=== PATIENT | female | born 1990 | race Caucasian/White ===

== ENCOUNTER 2023-01-24 08:40 | Inpatient (IN) | payer MEDICAID, OTHER ==
[~2023-01-24] VITALS: Ht 152.4 cm; Wt 49.4 kg
[2023-01-24] VITALS (9 sets, daily range): BP systolic 105–123; BP diastolic 58–78; TEMP 98.3; O2SAT 98–100
[~2023-01-24 08:40] MED LIST: ETOMIDATE 20 MG/10 ML VIAL ONE; ROCURONIUM BROMIDE 50 MG/5 ML VIAL ONE
--- NOTE | 2023-01-24 09:02 | NUR ---
Pt seen by MD for bedside eval. Safety measures in place. Will continue to monitor.
[2023-01-24] MEDS ORDERED: IV NORMAL SALINE 1000 ML BAG IV ONE ×3 (09:15→17:00)
[2023-01-24 10:00] LABS: ABG BASE EXCESS -15.2 mmol/L; ABG HCO3 8.8 mmol/L; ABG PCO2 18.4 mmHg (35.0-45.0); ABG PH 7.296 (7.350-7.450); ABG PO2 59.4 mmHg (75.0-100.0); ABG SITE LEFT RADIAL; ABG TOTAL HEMOGLOBIN 14.3 G/dL (12.0-16.0); COHb 1.8 % (0.5-1.5); MetHb 0.2 % (0.0-1.5); O2Hb 87.4 % (94.0-97.0); VENT MODE RA
[2023-01-24 10:03] LABS: HEMATOCRIT 44.2 % (31.2-41.9); MEAN CORPUSCULAR HEMOGLOBIN 29.3 uug (24.7-32.8); MEAN CORPUSCULAR VOLUME 96.1 fL (75.5-95.3); PLATELET COUNT (AUTO) 648 K/uL (179-408)
--- NOTE | 2023-01-24 10:09 | NUR ---
Administered 2L O2 via NC on Pt as Pt's SpO2 is 92%. SpO2 is now 99%. Safety measures in place. Will continue to monitor.
[2023-01-24 10:16] LABS: ALANINE AMINOTRANSFERASE 15 U/L (14-59); ALKALINE PHOSPHATASE 201 U/L (50-136); ASPARTATE AMINOTRANSFERASE 8 U/L (15-37); BILIRUBIN,DIRECT 0.1 mg/dL (0.0-0.2); BILIRUBIN,TOTAL 0.6 mg/dL (0.2-1.0); TOTAL PROTEIN, SERUM 7.9 g/dL (6.4-8.2)
[2023-01-24 10:17] LABS: ACETAMINOPHEN < 2.0 ug/mL (10-30)
[2023-01-24] MEDS ORDERED: AZITHROMYCIN IV 500 MG in IV DEXTROSE 5% 250 ML IV ONE (10:30)
[2023-01-24] MEDS ORDERED: CEFTRIAXONE 1 G in IV DEXTROSE 5% 50 ML IV ONE (10:30)
[2023-01-24 10:32] LABS: *AMPHETAMINE, URINE NEGATIVE (NEGATIVE); *CANNABINOID, URINE NEGATIVE (NEGATIVE); *COCCAINE, URINE NEGATIVE (NEGATIVE); *PHENCYCLIDINE SCREEN,URINE NEGATIVE (NEGATIVE)
[2023-01-24] MEDS ORDERED: AZITHROMYCIN 500MG/ D5W 250ML IVPB **ER PYXIS ONLY IV ONE (10:37)
[2023-01-24] MEDS ORDERED: CEFTRIAXONE /D5W 50ML IVPB **ER PYXIS IV ONE (10:37)
[2023-01-24 10:39] LABS: *URINE HCG, QUAL NEGATIVE (NEGATIVE)
[2023-01-24 10:44] LABS: *CLARITY,URINE CLEAR (CLEAR); *COLOR,URINE YELLOW (YELLOW); *KETONES,URINE 4+ (NEGATIVE); *UROBILINOGEN,URINE 0.2 E.U./dl (NORMAL); LEUKOCYTE ESTERASE ,URINE NEGATIVE (NEGATIVE); NITRITE, URINE NEGATIVE (NEGATIVE)
[2023-01-24 10:48] LABS: *BLOOD, URINE TRACE (NEGATIVE); UGLUCOSE 3+ (NEGATIVE)
[2023-01-24 10:49] LABS: *BILIRUBIN,URIN 1+ (NEGATIVE)
[2023-01-24 11:01] LABS: BACTERIA,URINE FEW /HPF (NONE SEEN); RBC,URINE 0-3 /HPF (0-3); SQUAMOUS EPITHELIAL CELL,UR FEW /HPF (NONE SEEN); WBC,URINE NONE SEEN /HPF (0-3)
--- NOTE | 2023-01-24 11:55 | NUR ---
Assisted Dr. Waddell with intubation. 7.5ETT @ approx 23cm @ at the lip. With the given settings AC, RR 20 , 400, +0 PEEP, 100% ABG to be done in an hour, sputum sampled obtained
--- NOTE | 2023-01-24 11:55 | NUR ---
Pt intubated by with nursing staff and WOOD TURNING LATHE OPERATOR at bedside.
[2023-01-24 12:00] LABS: CREATININE 2.2 mg/dL (0.6-1.3); MAGNESIUM 2.2 mg/dL (1.8-2.4); PHOSPHOROUS 6.5 mg/dL (2.5-4.9); POTASSIUM 3.4 mmol/L (3.5-5.1)
[2023-01-24 12:01] LABS: CREATININE 2.3 mg/dL (0.6-1.3); MAGNESIUM 2.4 mg/dL (1.8-2.4); PHOSPHOROUS 6.8 mg/dL (2.5-4.9); POTASSIUM 3.6 mmol/L (3.5-5.1)
[2023-01-24] MEDS ORDERED: PROPOFOL 0 ML ONE (12:06)
--- NOTE | 2023-01-24 12:43 | NUR ---
Dr. Waddell successfully performed central line. Successfully retrieved guide wire and properly discarded it. Safety measures in place. Will continue to monitor.
[2023-01-24 13:05] LABS: ABG BASE EXCESS -23.4 mmol/L; ABG HCO3 6.7 mmol/L; ABG PCO2 28.1 mmHg (35.0-45.0); ABG PH 6.995 (7.350-7.450); ABG PO2 447.4 mmHg (75.0-100.0); ABG SITE RIGHT BRACHIAL; ABG TOTAL HEMOGLOBIN 11.5 G/dL (12.0-16.0); COHb 0.2 % (0.5-1.5); MetHb 0.4 % (0.0-1.5); O2Hb 99.2 % (94.0-97.0); VENT MODE VENT - A/C; VT, ABG 400 mL
[2023-01-24 13:07] LABS: HEMATOCRIT 34.5 % (31.2-41.9)
[2023-01-24 13:38] LABS: CREATININE 2.1 mg/dL (0.6-1.3); MAGNESIUM 1.9 mg/dL (1.8-2.4); POTASSIUM 3.2 mmol/L (3.5-5.1)
[2023-01-24] MEDS ORDERED: IV 0.9% SODIUM CHLORID+ 20 KCL 1,000 ML IV PRN (13:45)
[2023-01-24] MEDS ORDERED: INSULIN REGULAR, HUMAN 100 UNIT in IV NORMAL SALINE 100 ML IV PRN ×2 (13:45)
[2023-01-24] MEDS ORDERED: INSULIN REGULAR, HUMAN 300 UNIT/3 ML VIAL IV ONE (13:45)
[2023-01-24] MEDS ORDERED: INSULIN REGULAR, HUMAN 300 UNIT/3 ML VIAL ONE (13:52)
[2023-01-24] MEDS ORDERED: IV 0.9% SODIUM CHLORID+ 20 KCL 1,000 ML ONE (14:02)
[2023-01-24] MEDS ORDERED: REMEDY ESSENTIAL ZINC PASTE 113 GM TP PRN (14:15)
[2023-01-24] MEDS ORDERED: ONDANSETRON 4 MG/2 ML VIAL IV PRN (14:15)
[2023-01-24] MEDS ORDERED: ACETAMINOPHEN 650 MG SUPP.RECT RC PRN (14:15)
[2023-01-24] MEDS: POTASSIUM CHLORIDE 50 ML IV SCH ×3 (14:29→23:00)
[2023-01-24] MEDS ORDERED: SODIUM BICARBONATE 8.4% 50 MEQ/50 ML VIAL IV ONE (14:45)
[2023-01-24] MEDS ORDERED: SODIUM BICARBONATE 8.4% 50 MEQ/50 ML DISP.SYRIN IV ONE (14:51)
[2023-01-24] MEDS ORDERED: BLOOD SUGAR DIAGNOSTIC 1 EACH STRIP VI SCH (15:00)
--- NOTE | 2023-01-24 15:00 | NUR ---
Pt's 1500 Blood Glucose is shown as "HI" as indicated by glucometer. Safety measures in place. Will continue to monitor.
[2023-01-24] MEDS: BLOOD SUGAR DIAGNOSTIC 1 EACH STRIP VI SCH ×9 (15:13→23:07)
[2023-01-24 16:00] LABS: ABG BASE EXCESS -18.3 mmol/L; ABG HCO3 9.1 mmol/L; ABG PCO2 26.8 mmHg (35.0-45.0); ABG PH 7.149 (7.350-7.450); ABG PO2 87.2 mmHg (75.0-100.0); ABG SITE LEFT RADIAL; ABG TOTAL HEMOGLOBIN 11.9 G/dL (12.0-16.0); COHb 0.6 % (0.5-1.5); MetHb 0.2 % (0.0-1.5); O2Hb 94.5 % (94.0-97.0); VENT MODE VENT - A/C; VT, ABG 400 mL
[2023-01-24] MEDS ORDERED: PROPOFOL 100 ML ONE (16:20)
--- NOTE | 2023-01-24 16:51 | NUR ---
Pt's 1600 Blood Glucose is shown as "HI" as indicated by glucometer. Safety measures in place. Will continue to monitor.
--- NOTE | 2023-01-24 17:14 | NUR ---
Pt's 1700 Blood Glucose is shown as "HI" as indicated by glucometer. Safety measures in place. Will continue to monitor.
--- NOTE | 2023-01-24 17:27 | NUR ---
Increased propofol every 10 min. Propofol is now at 40mcg. Safety measures in place. Will continue to monitor.
[2023-01-24] MEDS ORDERED: MISCELLANEOUS MED XX ONE (18:00)
[2023-01-24] MEDS: IV NS 1000 ML 1,000 ML IV PRN ×2 (18:28→20:57)
[2023-01-24] MEDS ORDERED: POTASSIUM CHLORIDE 50 ML IV SCH (18:45)
[2023-01-24] MEDS ORDERED: POTASSIUM CHLORIDE 100 ML ONE (18:46)
[2023-01-24] MEDS: INSULIN REGULAR, HUMAN 100 UNITS in IV NORMAL SALINE 100 ML IV SCH ×4 (18:50→23:01)
--- NOTE | 2023-01-24 18:54 | NUR ---
Insulin drip initiated at approximately 1500: 10 U/hr. Safety measures in place. Will continue to monitor.
--- NOTE | 2023-01-24 19:00 | NUR ---
Gave report to Chelsea GEE).
--- NOTE | 2023-01-24 19:08 | NUR ---
Pt's 1900 Blood Glucose is shown as "HI" as indicated by glucometer. Safety measures in place. Will continue to monitor.
--- NOTE | 2023-01-24 19:45 | NUR ---
Pt transferred to 21-1 safely and in stable condition. All belongings are with pt. All documentation is with ICU.
--- NOTE | 2023-01-24 19:50 | NUR ---
Pt is noted sedated with ETT to Vent therapy in place as report is received from the day shift RN as pt is a new admit from ER and transferred from ER Bed-1B. Pt is Sinus Rhythm on the Tele monitor, Diminished Lungs sound with ETT 7.5/22CM to Vent therapy in progress with setting off AC 20, 400 AND 40%, skin dry, warm and intact. Pt is noted with Boyer and Right Femoral [id number] with Insulin Gtt at 20ML/HR, Propofol at 50mcq and IVF 0.9NS AT 200ml/hr. Pt care continue as she will be monitor closely with Blood Glucose check Q1HR per DKA Protocol and Labs done as well.
[2023-01-24 22:34] LABS: CREATININE 1.8 mg/dL (0.6-1.3); POTASSIUM 3.1 mmol/L (3.5-5.1)
--- NOTE | 2023-01-24 22:49 | NUR ---
Pt care continue as Potassium 30Meq IVPB ordered per Protocol due to K+ Level off 3.1 and also Pt remain on Insulin gtt with LAB calling new results off 550.
[2023-01-24] MEDS: PROPOFOL 100 ML IV PRN (23:11)
[2023-01-25] VITALS (47 sets, daily range): BP systolic 106–163; BP diastolic 29–104; TEMP 98.9–99.9; O2SAT 97–100
[2023-01-25] MEDS: POTASSIUM CHLORIDE 50 ML IV SCH ×2 (00:06→01:02)
[2023-01-25] MEDS: BLOOD SUGAR DIAGNOSTIC 1 EACH STRIP VI SCH ×11 (00:15→18:46)
--- NOTE | 2023-01-25 01:20 | NUR ---
Pt remain full code as Blood Gulose is been monitor 1hr with Insulin gtt therapy in progress and IVF 0.9NS AT 200ml/hr with sedations Propofol at 50mcg/hr. Pt care continue with ETT to Vent therapy and suctions as needed.
--- NOTE | 2023-01-25 04:35 | NUR ---
Pt care continue as she remain NPO with ETT to Vent therapy and still on Insulin gtt at 2units/hr as awaits next LAB Drawn and Propofol at 50Mcg with IVF 9.0NS at 200ml/hr as AM care done.
[2023-01-25 04:57] LABS: HEMATOCRIT 34.2 % (31.2-41.9); MEAN CORPUSCULAR HEMOGLOBIN 29.1 uug (24.7-32.8); PLATELET COUNT (AUTO) 448 K/uL (179-408)
[2023-01-25] MEDS: PROPOFOL 100 ML IV PRN ×4 (05:01→17:55)
[2023-01-25 05:54] LABS: CREATININE 1.7 mg/dL (0.6-1.3); MAGNESIUM 1.3 mg/dL (1.8-2.4); POTASSIUM 3.7 mmol/L (3.5-5.1)
[2023-01-25 06:26] LABS: ABG BASE EXCESS 1.3 mmol/L; ABG HCO3 24.2 mmol/L; ABG PCO2 32.7 mmHg (35.0-45.0); ABG PH 7.487 (7.350-7.450); ABG PO2 115.6 mmHg (75.0-100.0); ABG SITE RIGHT RADIAL; ABG TOTAL HEMOGLOBIN 11.8 G/dL (12.0-16.0); COHb 0.1 % (0.5-1.5); MetHb 0.2 % (0.0-1.5); O2Hb 98.2 % (94.0-97.0); VENT MODE VENT - A/C; VT, ABG 400 mL
[2023-01-25] MEDS ORDERED: POTASSIUM CHLORIDE 50 ML IV SCH (06:30)
--- NOTE | 2023-01-25 07:33 | NUR ---
Pt care continue as report is given to the AM receiving nurse.
[2023-01-25] MEDS ORDERED: PIPERACILLIN SODIUM/TAZOBACTAM 3.375 G in IV DEXTROSE 5% 50 ML IV SCH (08:00)
[2023-01-25] MEDS ORDERED: POTASSIUM PHOSPHATE MM 15 MMOL in IV NORMAL SALINE 250 ML IV ONE (08:00)
[2023-01-25] MEDS: IV NS 1000 ML 1,000 ML IV PRN (08:39)
[2023-01-25] MEDS: PIPERACILLIN SODIUM/TAZOBACTAM 3.375 G in IV DEXTROSE 5% 100 ML IV SCH ×3 (09:30→21:18)
[2023-01-25] MEDS: INSULIN REGULAR, HUMAN 100 UNITS in IV NORMAL SALINE 100 ML IV SCH ×2 (09:37)
[2023-01-25] MEDS ORDERED: IV D5/ 0.9% NACL 1,000 ML IV PRN (10:30)
[2023-01-25] MEDS: MAGNESIUM SULFATE/D5W 100 ML IV SCH ×2 (10:46→10:49)
[2023-01-25] MEDS: PANTOPRAZOLE SODIUM 40 MG VIAL IV SCH (10:47)
[2023-01-25] MEDS: HEPARIN SODIUM,PORCINE 5,000 UNITS/ML VIAL SQ SCH ×2 (10:48→21:17)
[2023-01-25] MEDS ORDERED: BLOOD SUGAR DIAGNOSTIC 1 EACH STRIP VI SCH (12:00)
[2023-01-25] MEDS ORDERED: DEXTROSE 50% 50 ML DISP.SYRIN IV PRN ×2 (12:30→20:15)
[2023-01-25] MEDS: IPRATROPIUM BROMIDE 0.5 MG/2.5 ML NEBU NEB SCH ×2 (12:57→20:53)
[2023-01-25] MEDS: ALBUTEROL SULFATE 2.5 MG/3 ML NEBU NEB SCH ×2 (12:57→20:53)
[2023-01-25] MEDS: INSULIN REGULAR, HUMAN 300 UNIT/3 ML VIAL SQ PRN ×2 (12:58→18:55)
[2023-01-25] MEDS: IV D5 1/2 NS 1000 ML 1,000 ML IV PRN (15:46)
--- NOTE | 2023-01-25 17:30 | NUR ---
PT REMAINS INTUBATED, SPO2 AND RESPIRATIONS WNL THROUGHOUT SHIFT. SIZE 7.5 ETT FOUND @ 22 CM LIP LINE. ETT REPOSITIONED Q2, ETT/ORAL SXN PROVIDED PRN. IN-LINE TX TOLERATED WELL WITHOUT ADVERSE REACTION. WILL CONTINUE TO MONITOR PT AND FOLLOW CURRENT RESPIRATORY ORDERS.
[2023-01-25 22:44] LABS: *BILIRUBIN,URIN 1+ (NEGATIVE); *CLARITY,URINE CLEAR (CLEAR); *COLOR,URINE YELLOW (YELLOW); *KETONES,URINE 2+ (NEGATIVE); *UROBILINOGEN,URINE 0.2 E.U./dl (NORMAL); LEUKOCYTE ESTERASE ,URINE NEGATIVE (NEGATIVE); NITRITE, URINE NEGATIVE (NEGATIVE); UGLUCOSE 2+ (NEGATIVE)
[2023-01-25 22:47] LABS: *BLOOD, URINE TRACE (NEGATIVE)
[2023-01-25 22:56] LABS: *URINE TOTAL PROTEIN RANDOM 134.1 mg/dL (<150/24HR)
[2023-01-26] VITALS (30 sets, daily range): BP systolic 121–166; BP diastolic 61–105; TEMP 98.1–99.3; O2SAT 95–100
[2023-01-26] MEDS: PROPOFOL 100 ML IV PRN ×2 (00:16→04:09)
[2023-01-26] MEDS: BLOOD SUGAR DIAGNOSTIC 1 EACH STRIP VI SCH ×5 (00:46→20:31)
[2023-01-26] MEDS: ALBUTEROL SULFATE 2.5 MG/3 ML NEBU NEB SCH ×4 (00:46→20:10)
[2023-01-26] MEDS: IPRATROPIUM BROMIDE 0.5 MG/2.5 ML NEBU NEB SCH ×4 (00:46→20:10)
[2023-01-26] MEDS: IV D5 1/2 NS 1000 ML 1,000 ML IV PRN (01:04)
[2023-01-26 03:08] LABS: BACTERIA,URINE FEW /HPF (NONE SEEN); RBC,URINE 0-3 /HPF (0-3); SQUAMOUS EPITHELIAL CELL,UR FEW /HPF (NONE SEEN); WBC,URINE 0-3 /HPF (0-3)
[2023-01-26 05:22] LABS: HEMATOCRIT 30.3 % (31.2-41.9); MEAN CORPUSCULAR HEMOGLOBIN 29.5 uug (24.7-32.8); MEAN CORPUSCULAR VOLUME 88.4 fL (75.5-95.3); PLATELET COUNT (AUTO) 326 K/uL (179-408)
[2023-01-26] MEDS: PIPERACILLIN SODIUM/TAZOBACTAM 3.375 G in IV DEXTROSE 5% 100 ML IV SCH ×3 (05:30→21:16)
[2023-01-26 05:31] LABS: MAGNESIUM 1.8 mg/dL (1.8-2.4); PHOSPHOROUS 1.7 mg/dL (2.5-4.9); POTASSIUM 2.9 mmol/L (3.5-5.1)
[2023-01-26] MEDS: INSULIN REGULAR, HUMAN 300 UNIT/3 ML VIAL SQ PRN ×4 (06:07→20:42)
[2023-01-26 06:17] LABS: VENT MODE VENT - A/C; VT, ABG 400 mL
[2023-01-26 06:43] LABS: ABG BASE EXCESS -0.5 mmol/L; ABG HCO3 21.9 mmol/L; ABG PCO2 28.9 mmHg (35.0-45.0); ABG PH 7.498 (7.350-7.450); ABG PO2 66.2 mmHg (75.0-100.0); ABG SITE LEFT FEMORAL; ABG TOTAL HEMOGLOBIN 10.8 G/dL (12.0-16.0); COHb 0.3 % (0.5-1.5); MetHb 0.2 % (0.0-1.5); O2Hb 94.1 % (94.0-97.0)
--- NOTE | 2023-01-26 07:10 | NUR ---
Received pt. on ventilator propofol running at 60mcg/kg/min patient restless agitated. saturation above 95%. no tachypnea. Cardiac-royal pt. sinus rhythm sinus tachycardia in the low 118-120's/ SBP 160's and above. Boyer catheter with clear output. Orders to dcd propofol and start precedex drip after morning ABG's were reported to attending by shift nurse manager R.N. TLS right growing will continue with care plan.
[2023-01-26] MEDS ORDERED: PRECEDEX 400 MCG/100 ML BOTTLE 100 ML IV PRN (07:15)
--- NOTE | 2023-01-26 07:15 | NUR ---
DR BURROWS INFORMED OF LATEST ABGS, ORDERS OBTAINED
--- NOTE | 2023-01-26 07:30 | NUR ---
REPORT GIVEN TO STEVE KENT
--- NOTE | 2023-01-26 08:30 | NUR ---
NOTED PATIENT WITH SAT OF 83-84 PERCENT STARTED O2 AT 6L/M AND SAT IS AT 95 PERCENT AT THIS TIME WILL OBSERVE. Addendum: 01/26/23 at 1910 by JOHN ORELLANA RN ERROR IN CHARTING TIME IS 0142
[2023-01-26] MEDS: PANTOPRAZOLE SODIUM 40 MG VIAL IV SCH (08:33)
[2023-01-26] MEDS: HEPARIN SODIUM,PORCINE 5,000 UNITS/ML VIAL SQ SCH ×2 (08:34→20:21)
[2023-01-26] MEDS: MAGNESIUM SULFATE/D5W 100 ML IV SCH ×6 (10:51→15:28)
--- NOTE | 2023-01-26 10:54 | NUR ---
Patient completely off propofol,fully awake restless, agitated, banging side rails with her lower extremities. Patient reoriented does not follow commands. Patient remains on restrains. Medical Records Assistant Dr. Pritchard called and notified.
--- NOTE | 2023-01-26 11:34 | NUR ---
Dr. Pritchard pulmonary services, in the unit to examine pt. report given. At this time precedex off. Pt. agreed to take deep breaths with plans to extubate. Restrains remain on. in [address] Pritchard will be back with plans to extubate pt. RT notified.
--- NOTE | 2023-01-26 12:06 | NUR ---
At this time patient extubated and left on room air saturation of 99%. No tachypnea or SOB. Restrains dcd at this time as well. Will continue to monitor.
--- NOTE | 2023-01-26 13:40 | NUR ---
Attending Dr. Isak Newton in the unit to follow up on pt. report given. Addendum: 01/26/23 at 1357 by DONTE ALLISON RN As ordered "if pt. doing well may be down-graded to med-surge.
[2023-01-26] MEDS ORDERED: BENZOCAINE/MENTH/CETYLPYRD LOZENGE MM PRN (13:45)
--- NOTE | 2023-01-26 15:23 | NUR ---
Bedside nursing swallow eval done pt. swallow well with no s/s of aspiration. Patient been selective and choosing what she wants to eat. refusing jellow at this time and 5 minutes later "calling and asking for it".
[2023-01-26] MEDS ORDERED: SODIUM PHOSPHATE MM 15 MMOL in IV NORMAL SALINE 250 ML IV ONE (15:30)
--- NOTE | 2023-01-26 16:15 | NUR ---
Telephone report given to charge R.N. on the medical surgical floor.
--- NOTE | 2023-01-26 16:30 | NUR ---
PATIENT RECEIVED FROM CCU TRANSFER TO ROOM 307 BY BED.PATIENT IS ON ROOM AIR WITH NO SOB AT THIS TIME SHE IS ALERT AND AWAKE TALKS VERY SLOWLY ABLE TO MAKE SIMPLE NEEDS KNOWN.NO S/S OF HYPO/HYPERGLYCEMIC REACTIONS AT THIS TIME.MIMS CATH IN TACT WITH YELLOW URINE.INFUSING SODIUM PHOS ORDERED ORIENTED TO ROOM AND FACILITY PROTOCOL MADE COMFORTABLE WILL CONTINUE TO OBSERVE.
--- NOTE | 2023-01-26 16:30 | NUR ---
patient is alert, oriented x4, no sob, respirations are even nonlabored, skin warm and dry to touch, no distress noted. tranferred to room 307.
--- NOTE | 2023-01-26 16:35 | NUR ---
At this time pt. taken to room 314 via own bed. AAOx4. vitals stable no complains of pain TLC right growing patent and mag. las bag almost empty. Kphos running as well. Patient taken via own bed by staff.
[2023-01-26] MEDS ORDERED: DEXTROSE 50% 50 ML DISP.SYRIN IV PRN (18:00)
--- NOTE | 2023-01-26 19:00 | NUR ---
O2 SAT DOWN AGAIN TO 92 O2 INCREASED NOW TO 5L/M WILL OBSERVE.
[2023-01-26] MEDS ORDERED: LORAZEPAM 0.5 MG TABLET PO PRN (20:15)
--- NOTE | 2023-01-26 20:30 | NUR ---
Pt was anxious and agitated. MD aware. Received order for Ativan 0.5 mg PO. Pt stated she's not able to swallow. MD changed order to IV. Ativan 0.5 mg per IV given as ordered. Will continue to monitor.
[2023-01-26] MEDS: LORAZEPAM 2 MG/1 ML VIAL IV PRN (21:22)
[2023-01-27] VITALS (12 sets, daily range): BP systolic 146–157; BP diastolic 85–92; TEMP 98.5–99.2; O2SAT 94–99
--- NOTE | 2023-01-27 00:30 | NUR ---
Pt complaining of pain on her back, leg, abdomen. Pt requesting for pain medication stronger than Tylenol. Md aware. No new order received.
[2023-01-27] MEDS: IPRATROPIUM BROMIDE 0.5 MG/2.5 ML NEBU NEB SCH ×4 (02:07→21:00)
[2023-01-27] MEDS: ALBUTEROL SULFATE 2.5 MG/3 ML NEBU NEB SCH ×4 (02:07→21:00)
[2023-01-27] MEDS: LORAZEPAM 2 MG/1 ML VIAL IV PRN ×4 (04:25→23:43)
[2023-01-27] MEDS: PIPERACILLIN SODIUM/TAZOBACTAM 3.375 G in IV DEXTROSE 5% 100 ML IV SCH ×3 (05:05→21:29)
[2023-01-27] MEDS: BLOOD SUGAR DIAGNOSTIC 1 EACH STRIP VI SCH ×4 (06:35→21:03)
[2023-01-27] MEDS: INSULIN REGULAR, HUMAN 300 UNIT/3 ML VIAL SQ PRN ×4 (06:40→21:06)
[2023-01-27 06:48] LABS: HEMATOCRIT 30.7 % (31.2-41.9); MEAN CORPUSCULAR HEMOGLOBIN 28.9 uug (24.7-32.8); MEAN CORPUSCULAR VOLUME 88.5 fL (75.5-95.3); PLATELET COUNT (AUTO) 264 K/uL (179-408)
[2023-01-27 07:24] LABS: CREATININE 0.8 mg/dL (0.6-1.3); MAGNESIUM 2.3 mg/dL (1.8-2.4); PHOSPHOROUS 2.7 mg/dL (2.5-4.9); POTASSIUM 3.1 mmol/L (3.5-5.1)
--- NOTE | 2023-01-27 09:00 | NUR ---
Rcvd pt in bed. Right femoral central line patent and intact. Pt. on O2 at 3lpm saturating 96%. Boyer catheter draining good. Pt. was asking Ativan IV when due.
[2023-01-27] MEDS: PANTOPRAZOLE SODIUM 40 MG VIAL IV SCH (09:08)
[2023-01-27] MEDS: HEPARIN SODIUM,PORCINE 5,000 UNITS/ML VIAL SQ SCH ×2 (09:10→20:52)
[2023-01-27] MEDS: diphenhydrAMINE 50 MG/1 ML VIAL IV PRN ×2 (11:15→20:49)
[2023-01-27] MEDS ORDERED: POTASSIUM CHLORIDE 20 MEQ TAB.PRT.SR PO ONE (13:00)
--- NOTE | 2023-01-27 17:50 | NUR ---
No adverse reaction to IV atb. Right femoral central line dressing changed. Got discharge order but pt. is weak and can barely stand up. O2 is 85% RA. PT eval ordered. Ativan IV given as ordered.
--- NOTE | 2023-01-27 19:30 | NUR ---
Received patient laying in bed, alert and oriented x2-3, often confused, and very needy. 2L Nasal Canula, Femoral triple lumen intact and patent. Safety measures in place. Will continue plan of care.
[2023-01-28] MEDS: ALBUTEROL SULFATE 2.5 MG/3 ML NEBU NEB SCH ×3 (01:30→12:51)
[2023-01-28] MEDS: IPRATROPIUM BROMIDE 0.5 MG/2.5 ML NEBU NEB SCH ×3 (01:30→12:51)
[2023-01-28] MEDS: PIPERACILLIN SODIUM/TAZOBACTAM 3.375 G in IV DEXTROSE 5% 100 ML IV SCH (06:46)
[2023-01-28] MEDS: diphenhydrAMINE 50 MG/1 ML VIAL IV PRN (06:54)
[2023-01-28] MEDS: PANTOPRAZOLE SODIUM 40 MG TABLET.DR PO SCH ×2 (06:54→07:00)
[2023-01-28 07:03] LABS: CREATININE 0.7 mg/dL (0.6-1.3); POTASSIUM 3.4 mmol/L (3.5-5.1)
[2023-01-28] MEDS: BLOOD SUGAR DIAGNOSTIC 1 EACH STRIP VI SCH ×2 (07:06→11:40)
[2023-01-28 07:59] VITALS: O2SAT 96
[2023-01-28 08:10] VITALS: O2SAT 99
--- NOTE | 2023-01-28 09:00 | NUR ---
Rcvd pt in bed more awake, alert, and oriented. O2 at 2lpm saturating 94%. Right femoral central line triple lumen patent and intact. No adverse reaction noted from IV ATB. Needs attended. call light within reach.
[2023-01-28] MEDS ORDERED: POTASSIUM CHLORIDE 20 MEQ TAB.PRT.SR PO ONE (09:15)
[2023-01-28] MEDS: HEPARIN SODIUM,PORCINE 5,000 UNITS/ML VIAL SQ SCH (09:47)
[2023-01-28] MEDS: INSULIN REGULAR, HUMAN 300 UNIT/3 ML VIAL SQ PRN (11:44)
[2023-01-28 11:49] VITALS: BP 164/96; TEMP 97.6; O2SAT 96
[2023-01-28] MEDS ORDERED: INSULIN GLARGINE,HUM 300 UNITS/3 ML CARTRIDGE SQ ONE (12:15)
[2023-01-28] MEDS: LORAZEPAM 2 MG/1 ML VIAL IV PRN (12:37)
[2023-01-28 12:51] VITALS: O2SAT 94
[2023-01-28 12:58] VITALS: O2SAT 99
--- NOTE | 2023-01-28 13:37 | NUR ---
Clinical SW Note: Pt is alert and oriented x4. SW discussed pt's discharge options per nursing to a rehab center. SW provided substance use referrals for the pt and placed a copy in the chart. Per pt, she is refusing to be discharged to a rehab center for substance use. Pt stated she will be discharged home by her mother and refuses all other options. Pt stated to only speak to her mother as she will be the one to provide her transportation. GORDO gave report to case monitor, Kajal.
--- NOTE | 2023-01-28 15:42 | NUR ---
Pt discharged home and picked up by her mother (Jamil) via private car at around 3:40 pm. Clothes for patient provided since pt has nothing to wear going home. Discharge protocol observed. All belongings accounted for. Patient teaching provided gwendolyn. fall prevention and substance abuse. Patient and family grateful for the service rendered.
[2023-01-29] MEDS ORDERED: INSULIN GLARGINE,HUM 300 UNITS/3 ML CARTRIDGE SQ SCH (21:00)
== END 2023-01-28 15:40 | disposition home or self-care (01) | DRG 420 ==
LOC: ER 08:40 → EDSEX 08:40 → CCU 17:00 → TRANSITION 17:50 → UNDOADMIN 17:50 → MEDSURG3 01-26 16:33
PROC: 5A1945Z Respiratory Ventilation, 24-96 Consecutive Hours (ICD-10-PCS; principal; 2023-01-24)
PROC: 0BH17EZ Insertion of Endotracheal Airway into Trachea, Via Natural or Artificial Opening (ICD-10-PCS; principal; 2023-01-24)
PROC: 06HY33Z Insertion of Infusion Device into Lower Vein, Percutaneous Approach (ICD-10-PCS; principal; 2023-01-24)
DX: E10.10 Type 1 diabetes mellitus with ketoacidosis without coma (principal); J69.0 Pneumonitis due to inhalation of food and vomit; J96.01 Acute respiratory failure with hypoxia; R57.1 Hypovolemic shock; J96.02 Acute respiratory failure with hypercapnia; N17.9 Acute kidney failure, unspecified; R64 Cachexia; G92.8 Other toxic encephalopathy; Z79.4 Long term (current) use of insulin; Z20.822 Contact with and (suspected) exposure to COVID-19; F50.9 Eating disorder, unspecified; Z68.21 Body mass index [BMI] 21.0-21.9, adult; E83.39 Other disorders of phosphorus metabolism; E83.42 Hypomagnesemia; F19.10 Other psychoactive substance abuse, uncomplicated; F13.10 Sedative, hypnotic or anxiolytic abuse, uncomplicated; F11.10 Opioid abuse, uncomplicated; Z81.3 Family history of other psychoactive substance abuse and dependence; N28.89 Other specified disorders of kidney and ureter; G89.4 Chronic pain syndrome; M54.9 Dorsalgia, unspecified; J45.909 Unspecified asthma, uncomplicated; D75.839 Thrombocytosis, unspecified; T65.91XA Toxic effect of unspecified substance, accidental (unintentional), initial encounter; Y92.039 Unspecified place in apartment as the place of occurrence of the external cause; Z91.199 Patient's noncompliance with other medical treatment and regimen due to unspecified reason; E87.6 Hypokalemia; E86.0 Dehydration
CPT/HCPCS: 36415; 36600; 70450; 71045; 76937; 82803; 83605; 83735; 84100; 84300; 84443; 84484; 84703; 85018; 85025; 85730; 86850; 86900; 86901; 87040; 87806; 93005; 94002; 94003; 94640; 94664; A4663; C1758; C9113; G0378; G0480; J0456; J0696; J1200; J1644; J1815; J2060; J2543; J3475; J3480; J3490; J3590; J7040; J7042